=== PATIENT | female | born 1990 ===

== ENCOUNTER 2017-07-07 15:35 | Emergency (ER) | payer OTHER ==
[2017-07-07 15:41] VITALS: TEMP 98
[2017-07-07 16:19] LABS: RBC URINE 2 /hpf (0-3); TRANSITIONAL EPITHIAL < 1 /hpf (0-3); URINE BACTERIA RARE (<OCC); URINE BILIRUBIN NEGATIVE (NEGATIVE); URINE BLOOD NEGATIVE (NEGATIVE); URINE COLOR Yellow (YELLOW); URINE GLUCOSE (UA) NORMAL (Normal); URINE KETONE NEGATIVE (NEGATIVE); URINE LEUKOCYTE ESTERASE NEG Leu/uL (Negative); URINE PROTEIN NEGATIVE (NEGATIVE); URINE UROBILINOGEN NORMAL mg/dL (0.2-1.0); WBC URINE 3 /hpf (0-5)
[2017-07-07] MEDS ORDERED: Iohexol 240 (50 ml) PO STA (16:53)
[2017-07-07 17:13] LABS: BASO # 0.1 K/uL (0.0-0.2); BASO % 0.6 % (0.0-2.0); EOS # 0.4 K/uL (0.0-0.7); EOS % 3.3 % (0.0-4.0); HEMATOCRIT 40.5 % (34.0-47.0); LYMPH # 3.9 K/uL (1.0-4.3); LYMPH % 30.3 % (20.0-40.0); MEAN CELL VOLUME 90.3 fL (81.0-99.0); MEAN CORPUSCULAR HEMOGLOBIN 29.8 pg (27.0-31.0); MEAN PLATELET VOLUME 8.8 fL (7.2-11.7); MONO # 0.8 K/uL (0.0-0.8); MONO % 6.4 % (0.0-10.0); RED CELL DISTRIBUTION WIDTH 11.9 % (11.5-14.5); WHITE BLOOD COUNT 12.7 K/uL (4.8-10.8)
[2017-07-07] MEDS ORDERED: Iohexol 240 (50 ml) ONE ×2 (17:14→18:42)
[2017-07-07 17:15] LABS: CHLORIDE 104 mmol/L (98-107); POTASSIUM 3.4 mmol/L (3.6-5.2); SODIUM 140 mmol/L (132-148)
[2017-07-07 17:17] LABS: ALB/GLOB RATIO 1.1 (1.0-2.1); ALKALINE PHOSPHATASE 83 U/L (38-126); AST/SGOT 23 U/L (14-36); CARBON DIOXIDE 23 mmol/L (22-30); GFR AFRICAN-AMERICAN > 60; TOTAL PROTEIN 7.7 g/dL (6.3-8.3)
[2017-07-07 17:18] LABS: ALT/SGPT 33 U/L (9-52); BLOOD UREA NITROGEN 9 mg/dL (7-17); CALCIUM 9.6 mg/dl (8.6-10.4); GLUCOSE,RANDOM 84 mg/dL (65-105)
--- NOTE | 2017-07-07 18:24 | C.PDOC ---
History Of Present Illness <Ni Ross - Last Filed: 07/07/17 19:05> <Simin Paredes - Last Filed: 07/07/17 22:01> 26 y/o overweight female c/o lower abdominal pain to left side that radiates to back with urinary symptoms, vaginal discharge whitish yellow in color with foul odor. pt c/o nausea and vomiting. pt reports similar pain some time ago and sts she was given a shot for 'muscle pain' and it resolved. pt is poor historian. no fever or chills. pt appears alternately comfortable and in painful distress. (Ni Ross) Onset/Duration Of Symptoms: Days (2) Current Symptoms Are (Timing): Still Present Severity: Moderate Location Of Pain/Discomfort: LLQ, Suprapubic Radiation Of Pain To:: Back Quality Of Discomfort: Unable To Describe, "Pain" Associated Symptoms: Nausea, Vomiting Exacerbating Factors: None Alleviating Factors: None Recent travel outside of the [place]: No <Ni Ross - Last Filed: 07/07/17 19:05> <Simin Paredes - Last Filed: 07/07/17 22:01> Time Seen by Provider: 07/07/17 16:08 Chief Complaint (Nursing): Abdominal Pain Past Medical History Reviewed: Historical Data, Nursing Documentation, Vital Signs - Medical History PMH: Asthma Surgical History: Tonsillectomy Other Surgeries: tummy tuck Family History: States: Unknown Family Hx - Social History Hx Alcohol Use: Yes Hx Substance Use: Yes <Ni Ross - Last Filed: 07/07/17 19:05> Review Of Systems Constitutional: Negative for: Fever, Chills Cardiovascular: Negative for: Chest Pain Respiratory: Negative for: Cough, Shortness of Breath Gastrointestinal: Positive for: Nausea, Vomiting, Abdominal Pain Genitourinary: Positive for: Dysuria, Frequency, Vaginal Discharge Musculoskeletal: Positive for: Back Pain <Ni Ross - Last Filed: 07/07/17 19:05> Physical Exam - Physical Exam Skin: Warm, Dry Head: Atraumatic, Normacephalic Oral Mucosa: Moist Neck: Normal, No Midline Cervical Tenderness, Supple Chest: Symmetrical, No Deformity, No Tenderness Cardiovascular: Rhythm Regular, No Murmur Respiratory: Normal Breath Sounds, No Rales, No Rhonchi, No Stridor Gastrointestinal/Abdominal: Bowel Sounds, Soft, Tenderness, Other (low transverse scar, soft, normoactive bs, llq tender ) Back: Normal Inspection, No CVA Tenderness, No Vertebral Tenderness Pelvic: Normal Speculum Exam, Normal Bimanual Exam, No Vaginal Bleeding, Vaginal Discharge ( moderate amt, white, chaperoned by PREET Chaparro), Cervical Motion Tenderness Extremity: No Tenderness, No Pedal Edema, No Calf Tenderness Neurological/Psych: Oriented x3, Normal Speech, Normal Cognition, Normal Motor, Normal Sensation <Ni Ross - Last Filed: 07/07/17 19:05> ED Course And Treatment - Laboratory Results Result Diagrams: 07/07/17 17:03 07/07/17 17:03 O2 Sat by Pulse Oximetry: 100 <Ni Ross - Last Filed: 07/07/17 19:05> - Laboratory Results Result Diagrams: 07/07/17 17:03 07/07/17 17:03 <Simin Paredes - Last Filed: 07/07/17 22:01> Medical Decision Making <Ni Ross - Last Filed: 07/07/17 19:05> <Simin Paredes - Last Filed: 07/07/17 22:01> Medical Decision Making: Upon provider reevaluation patient is feeling better, is medically stable, and requires no further treatment in the ED at this time. Patient will be discharged home with Rx for flagyl . Counseling was provided and all questions were answered regarding diagnosis and need for follow up with dr torres. There is agreement to discharge plan. Return if symptoms persist or worsen. (Simin Paredes) Disposition - Disposition Disposition Time: 19:04 <Ni Ross - Last Filed: 07/07/17 19:05> Counseled Patient/Family Regarding: Studies Performed, Diagnosis, Need For Followup, Rx Given <Simin Paredes - Last Filed: 07/07/17 22:01> - Disposition Referrals: Erich Torres [Medical Doctor] - Disposition: HOME/ ROUTINE Condition: FAIR Additional Instructions: Please return if symptoms recur Prescriptions: Metronidazole [Flagyl] 500 mg PO TID #21 tablet Instructions: Abdominal Pain (ED) Forms: [employer] (Fijian) - Clinical Impression Clinical Impression: Abdominal pain, Panniculitis Physician Patient Turnover Patient Signed Over To: Simin Paredes Handoff Comments: s/o to f/u transvaginal sonogram and ct abdomen and dispo accordingly <Ni Ross - Last Filed: 07/07/17 19:05>
[2017-07-07] MEDS ORDERED: Iohexol 240 (50 ml) PO ONE (18:32)
[2017-07-07] MEDS ORDERED: Iohexol 350mg/ml 100 ML ONE (20:49)
--- NOTE | 2017-07-07 21:54 | CT ---
EXAM: CT Abdomen and Pelvis With Intravenous Contrast EXAM DATE/TIME: Exam ordered 07/07/2017 6:32 PM CLINICAL HISTORY: 26 years old, female; Pain; Abdominal pain; Flank; Left lower quadrant (llq); Additional info: Llq pain TECHNIQUE: Axial computed tomography images of the abdomen and pelvis with intravenous contrast. All CT scans at this facility use one or more dose reduction techniques, viz.: automated exposure control; ma/kV adjustment per patient size (including targeted exams where dose is matched to indication; i.e. head); or iterative reconstruction technique. Coronal and sagit 2. michelle reformatted images were created and reviewed. CONTRAST: 100 mL of OMNIPAQUE 350 administered intravenously. COMPARISON: No relevant prior studies available. FINDINGS: Lower thorax: Mild mosaic perfusion abnormalities noted in dependent portion of both lung bases. ABDOMEN: Liver: Unremarkable. No mass. Gallbladder and bile ducts: Unremarkable. No calcified stones. No ductal dilation. Pancreas: Unremarkable. No mass. No ductal dilation. Spleen: Unremarkable. No splenomegaly. Adrenals: Unremarkable. No mass. Kidneys and ureters: Unremarkable. No solid mass. No hydronephrosis. Stomach and bowel: Unremarkable. No obstruction. No mucosal thickening. Appendix: No findings to suggest acute appendicitis. PELVIS: Bladder: Unremarkable. No mass. Reproductive: Unremarkable as visualized. ABDOMEN and PELVIS: Intraperitoneal space: There is a small amount of free fluid in the posterior cul-de-sac. No free air. Bones/joints: No acute fracture. No dislocation. Soft tissues: There is mild inflammatory change noted within the in the pelvis at the level of the left inguinal ring. There is a healed transverse infraumbilical abdominal incision Vasculature: Unremarkable. No abdominal aortic aneurysm. Lymph nodes: Unremarkable. No enlarged lymph nodes. IMPRESSION: 1. Mild inflammatory change noted within the pelvic fat adjacent to the left inguinal ring. Differential diagnostic considerations include early fat necrosis, panniculitis, or internal hernia containing fat with venous congestion. 2. Mild mosaic perfusion abnormality in the dependent portion of both lung bases could reflect air trapping Images were attached to this report and are available at [email or web address]
[2017-07-07 22:05] VITALS: BP 120/70; PULSE 70; RESP 14; O2SAT 99
--- NOTE | 2017-07-08 09:59 | US ---
HISTORY: left adnexal pain COMPARISON: None available. TECHNIQUE: Transabdominal and endovaginal ultrasound examination of the pelvis was performed. The endovaginal study was performed for further evaluation of the endometrium and ovaries include ovarian torsion. FINDINGS: UTERUS: Measures 9.9 x 4.3 x 4.75 cm. The uterus is retroverted. Normal in size and appearance. No fibroid or other mass lesion seen. ENDOMETRIUM: Measures 8.7 mm in diameter. There is small punctate calcification at the distal portion of the endometrial cavity P CERVIX: No cervical abnormality identified. RIGHT OVARY: Measures 2.8 x 1.8 x 2.6 cm. No solid mass. Normal flow. LEFT OVARY: Measures 2.4 x 1.9 x 2.7 cm. No solid mass. Normal flow. FREE FLUID: No significant free fluid noted. OTHER FINDINGS: None. IMPRESSION: No ultrasound evidence of acute pathology in the pelvis. No ultrasound evidence of ovarian torsion. Small calcification at the distal portion of the endometrial cavity. Preliminary report was submitted by [facility].
== END 2017-07-07 22:06 | disposition home or self-care (01) ==
LOC: C.ER 15:35
DX: M79.3 Panniculitis, unspecified (principal); R10.32 Left lower quadrant pain
CPT/HCPCS: 74177; 76830; 76856; 80053; 81001; 83690; 84703; 85025; 87491; 87591; 96374; 99285; J1885; Q9966; Q9967